=== PATIENT | male | born 1950 | race Caucasian/White ===

== ENCOUNTER 2018-02-03 17:07 | Emergency (ER) | payer MEDICARE, SELFPAY ==
[2018-02-03 17:10] VITALS: BP 172/87; PULSE 85; RESP 18; TEMP 37.3; O2SAT 98; BMI 29.2
[2018-02-03 17:30] VITALS: BP 176/89; PULSE 87; RESP 16; O2SAT 98
--- NOTE | 2018-02-03 17:43 | DI.RAD.S_ITS ---
PROCEDURE: XR CHEST 1V INDICATIONS: chest pain TECHNIQUE: One view of the chest was acquired. COMPARISON: None. FINDINGS: Surgical changes and devices: None. Lungs and pleura: No pleural effusions or pneumothorax. Lungs are clear. Mediastinum: Mediastinal contours appear normal. Heart size is normal. Bones and chest wall: No suspicious bony lesions. Overlying soft tissues appear unremarkable. IMPRESSION: 1. No acute cardiopulmonary disease. Dictated by: Oren Quinonez M.D. on 02/03/2018 at 18:06 Approved by: Oren Quinonez M.D. on 02/03/2018 at 18:06
[2018-02-03] MEDS: ASPIRIN 81 MG TAB 324 MG PO (17:49)
[2018-02-03] MEDS: SODIUM CHLORIDE 0.9% 1,000 ML 150 ML IV (17:49)
--- NOTE | 2018-02-03 17:49 | ED.CHESTPAIN ---
HPI - Chest Pain General Chief Complaint: Chest Pain Stated Complaint: CHEST PAIN Time Seen by Provider: 02/03/18 17:21 Source: patient Mode of arrival: ambulatory Limitations: no limitations History of Present Illness HPI narrative: 67-year-old male, nonsmoker with history of coronary artery disease presents to the emergency department with a chief complaint chest pain for the past week. He states the pain started after he was vigorously working in the garden and shoveling. He states the pain is in his left anterior chest and radiates into his left arm. The pain is worse with palpation and with motion of his left upper arm. He denies associated symptoms such as dizziness, weakness or lightheadedness. He denies shortness of breath, nausea or vomiting. He had a series of events leading to a heart cath back home in [place] 1 year ago. He states this feels much different. complaint: chest pain Onset (ago): day(s) Duration: constant Onset: during exertion Pain location: left chest Severity: moderate Quality: aching Pain radiation: LUE Relieving factors: nothing Exacerbating factors: movement Context: recent travel Treatments prior to arrival chest pain: none Related Data Home Medications Medication Instructions Recorded Confirmed Glucosamine Sulf-Chondroitin 1 tab PO BID 02/03/18 02/03/18 Vitamin B-12 1 tab PO DAILY 02/03/18 02/03/18 Vitamin D3 1 tab PO DAILY 02/03/18 02/03/18 aspirin 81 mg PO DAILY 02/03/18 02/03/18 atorvastatin [Lipitor] 10 mg PO DAILY 02/03/18 02/03/18 carvedilol [Coreg] 1 tab PO BID 02/03/18 02/03/18 clopidogrel [Plavix] 75 mg PO QPM 02/03/18 02/03/18 escitalopram oxalate [Lexapro] 20 mg PO QPM 02/03/18 02/03/18 melatonin 1 tab PO BEDTIME 02/03/18 02/03/18 zolpidem [Ambien] 10 mg PO BEDTIME 02/03/18 02/03/18 Allergies Allergy/AdvReac Type Severity Reaction Status Date / Time No Known Drug Allergies Allergy Verified 02/03/18 17:16 Review of Systems Review of Systems All systems reviewed & are unremarkable except as noted in HPI and below Constitutional Denies chills, Denies fever(s), Denies lethargy and Denies weakness Eyes Denies change in vision, Denies eye discharge, Denies irritation and Denies loss of vision ENT Ears, Nose, Mouth, and Throat: Denies change in voice, Denies neck pain and Denies sore throat Cardiovascular Reports chest pain, Denies irregular heart rhythm, Denies lightheadedness, Denies palpitations, Denies dyspnea, Denies dyspnea on exertion and Denies orthopnea Respiratory Denies cough, Denies dyspnea, Denies dyspnea on exertion and Denies wheezing Gastrointestinal Gastrointestinal: Denies abdominal pain, Denies change in bowel habits, Denies diarrhea, Denies nausea and Denies vomiting Genitourinary Denies hematuria, Denies flank pain, Denies urinary incontinence and Denies urinary urgency Musculoskeletal Denies neck pain Integumentary/Breasts Denies pruritus, Denies erythema, Denies rash and Denies wounds Neurologic Denies confusion, Denies loss of vision and Denies weakness Psychiatric Denies anxiety, Denies confusion, Denies depression, Denies homicidal ideation and Denies suicidal ideation Endocrine Denies palpitations Hematologic/Lymphatic Denies easy bruising Allergic/Immunologic Denies wheezing [facility] [place] Social History Smoking Status: Never smoker Exam Narrative Exam Narrative: GENERAL: This is a well-nourished, well-developed patient, in mild distress. HEAD: Atraumatic. Normocephalic. No temporal or scalp tenderness. EYES: Pupils equal round and reactive. Extraocular motions intact. No scleral icterus. No injection or drainage. ENT: Nose without bleeding, purulent drainage or septal hematoma. Throat without erythema, tonsillar hypertrophy or exudate. Uvula midline. Airway patent. NECK: Trachea midline. No JVD or lymphadenopathy. Supple, nontender, no meningeal signs. CARDIOVASCULAR: Regular rate and rhythm without murmurs, gallops, or rubs. Left anterior chest to palpation RESPIRATORY: Clear to auscultation. Breath sounds equal bilaterally. No wheezes, rales, or rhonchi. GASTROINTESTINAL: Abdomen soft, non-tender, nondistended. No hepato-splenomegaly, or palpable masses. No guarding. EXTREMITIES: No clubbing, cyanosis, or edema. No joint tenderness, effusion, or edema noted. BACK: Nontender without deformity or crepitance. No flank tenderness. NEURO: AOx3. SKIN: No rash or erythema. Initial Vital Signs Initial Vital Signs: Vital Signs Temperature 99.2 F 02/03/18 17:10 Pulse Rate 85 02/03/18 17:10 Respiratory Rate 18 02/03/18 17:10 Blood Pressure 172/87 H 02/03/18 17:10 Pulse Oximetry 98 02/03/18 17:10 Course Orders Ordered: ED Orders 02/03/18 17:20 Complete Blood Count AUTO DIFF Stat Comprehensive Metabolic Panel Stat D Dimer Stat Lipase Stat Troponin & CK Cardiac Panel Stat 02/03/18 17:43 XR chest 1V Stat EKG-12 Lead Stat Sodium Chloride (Normal Saline 0.9%) 1,000 mls @ 150 mls/hr IV CONT HEATHER Last Admin: 02/03/18 17:49 Dose: 150 mls/hr Nitroglycerin (Nitrostat) 0.4 mg SL [id number] PRN PRN Reason: Chest Pain Last Admin: 02/03/18 18:00 Dose: 0.4 mg Admin: 02/03/18 17:53 Dose: 0.4 mg Discontinued Medications Aspirin (Aspirin Chew) 324 mg PO NOW ONE Stop: 02/03/18 17:43 Last Admin: 02/03/18 17:49 Dose: 324 mg Ketorolac Tromethamine (Toradol) 15 mg IV NOW ONE Stop: 02/03/18 18:32 Last Admin: 02/03/18 18:35 Dose: 15 mg Metoprolol Tartrate (Lopressor) 5 mg IV NOW ONE Stop: 02/03/18 17:43 Last Admin: 02/03/18 18:28 Dose: Not Given Reevaluation(s) Reevaluation #1: no change after NG Reevaluation #2: complete resolution after Toradol Consultations Consultation #1: Dr. Castellanos (cardio) agrees that admission is most appropriate given patient hx of CAD/Stent and radiation of pain. She recommends strongly that patient have provocotive testing prior to DC and is happy to accept patient. Vital Signs - 8 hr 02/03/18 17:10 02/03/18 17:30 02/03/18 17:53 Temperature 99.2 F Pulse Rate 85 87 85 Respiratory Rate 18 16 Blood Pressure 172/87 H 194/103 H Blood Pressure [Left Arm] 176/89 H Pulse Oximetry 98 98 02/03/18 17:59 02/03/18 18:09 02/03/18 19:30 Temperature 98.4 F Pulse Rate 93 H 90 81 Respiratory Rate 16 Blood Pressure 158/77 H 147/77 H Blood Pressure [Left Arm] 156/80 H Pulse Oximetry 100 MDM - Chest Pain Differential Diagnosis Likely pneumothorax, stable angina, unstable angina pectoris, atypical chest pain, st elevation myocardial infarction, costochondritis, chest pain and biliary colic Medical Records Data Attestation: I reviewed the patient's medical records. Lab Data Attestation: I reviewed the patient's lab results. Result diagrams: 02/03/18 17:20 02/03/18 17:20 Lab Results 02/03/18 02/03/18 02/03/18 Range/Units 17:20 17:20 17:20 WBC 5.8 (4.5-11.0) X10^3/uL RBC 4.54 (4.5-5.9) X10^6/uL Hgb 14.2 (13.5-17.5) g/dL Hct 42.8 (41-53) % MCV 94.2 (80-100) fL MCH 31.2 (26-34) PG MCHC 33.1 (30-36) % RDW 13.3 (11.6-14.8) % Plt Count 221 (150-400) X10^3/uL Neut % (Auto) 71.6 (50-75) % Lymph % (Auto) 17.4 L (25-40) % [place] % (Auto) 7.6 (3-14) % Eos % (Auto) 2.5 (2-4) % Baso % (Auto) 0.9 (0-2) % Neut # (Auto) 4100 (4418-3681) /uL D-Dimer < 200 (<230) ng/mL Sodium 144 (137-145) mmol/L Potassium 3.9 (3.4-5.1) mmol/L Chloride 103 (98-107) mmol/L Carbon Dioxide 32 (22-32) mmol/L BUN 14 (9-20) mg/dL Creatinine 0.90 (0.66-1.25) mg/dL Estimated GFR > 60.0 (>60) mL/min BUN/Creatinine Ratio 15.6 (6-22) Glucose 113 H (80-110) mg/dL Calcium 8.9 (8.4-10.2) mg/dL Total Bilirubin 0.6 (0.2-1.3) mg/dL AST 28 (17-59) IU/L ALT 37 (21-72) IU/L Alkaline Phosphatase 90 (38-126) U/L Total Creatine Kinase 181 H (55-170) U/L CK-MB (CK-2) 3.27 H (<2.37) ng/mL CK-MB (CK-2) Rel Index 1.8 (1.5-5.0) % Troponin I < 0.012 (0.01-0.034) ng/mL Total Protein 7.3 (6.3-8.2) g/dL Albumin 4.6 (3.5-5.0) g/dL Globulin 2.7 (1.7-4.1) g/dL Albumin/Globulin Ratio 1.7 (1.0-2.8) Lipase 21 L (23-300) U/L Imaging Data Chest x-ray: Radiologist's impression: [place] [address] XRay Report Signed Patient: ANNETTA ROWE EMR#: [id number] : 2Acct:[id number] Age/Sex: 67 / MDate of Service: 02/03/18 Loc: ED Accession Number: [id number] Procedure: XR chest 1V Ordering Provider: Robby Nicholas D.O. PROCEDURE: XR CHEST 1V INDICATIONS: chest pain TECHNIQUE: One view of the chest was acquired. COMPARISON: None. FINDINGS: Surgical changes and devices: None. Lungs and pleura: No pleural effusions or pneumothorax. Lungs are clear. Mediastinum: Mediastinal contours appear normal. Heart size is normal. Bones and chest wall: No suspicious bony lesions. Overlying soft tissues appear unremarkable. IMPRESSION: 1. No acute cardiopulmonary disease. Dictated by: Oren Quinonez M.D. on 02/03/2018 at 18:06 ECG Data Attestation: I personally reviewed and interpreted this ECG as follows: Prior ECG tracings: not available for review Interpretation: NSR at 84, no ischemia changes such as ST elevations/depressions, T wave inversions, ectopy Repeat unchanged MDM Narrative Medical decision making narrative: Ischemia considering history of CAD and stenting. Pain is reproduceable with palpation, normal EKG x2, troponin normal after multiple days, however pain radiates and isn't clearly musculoskeletal. My very strong recommendation was for transfer to [facility] for complete workup. I spent extensive time at bedside with patient and sibling. He understands that his decision could result in permanent disability or even . He understands that he may return immediately for any change in his mind. He understands the signs and symptoms which would prompt a return and could recite them back. He has capacity to make this decision. PE considered. Leif Clements PE algorithim employed, Wells score (low risk), failed PERC, DDimer ordered. Discharge Plan Departure Patient Disposition: Home Clinical Impression: Chest pain Interventions: ED Discharge Assessment Last Done: 02/03/18 19:48 Instructions: DI for Chest Pain Activity Restrictions/Additional Instructions: *You have been diagnosed with [ chest pain ] *What to do: *Continue to take medications as directed *Follow up with your primary care provider upon return home, call for an appointment. Let them know you were seen in the Emergency Department and that we ask that you be seen in follow up *Return to ER if you should have any new, worsening or concerning symptoms, such as [increasing fatigue, chest pain, radiation of pain, sweating, shortness of breath, the sensation of almost passing out, other bothersome symptoms. ] Prescriptions: No Action atorvastatin [Lipitor] 10 mg Tablet 10 mg PO DAILY RF: 0 clopidogrel [Plavix] 75 mg Tablet 75 mg PO QPM RF: 0 aspirin 81 mg Tablet,Delayed Release (Dr/Ec) 81 mg PO DAILY RF: 0 carvedilol [Coreg] 3.125 mg Tablet 1 tab PO BID RF: 0 zolpidem [Ambien] 10 mg Tablet 10 mg PO BEDTIME RF: 0 escitalopram oxalate [Lexapro] 20 mg Tablet 20 mg PO QPM RF: 0 Glucosamine Sulf-Chondroitin 1 tab PO BID RF: 0 Vitamin B-12 1 tab PO DAILY RF: 0 Vitamin D3 1 tab PO DAILY RF: 0 melatonin 1 tab PO BEDTIME RF: 0
[2018-02-03 17:53] VITALS: BP 194/103; PULSE 85
[2018-02-03] MEDS: NITROGLYCERIN 0.4 MG SL TAB SL ×2 (17:53→18:00)
--- NOTE | 2018-02-03 17:53 | ED_ITS ---
HPI - Chest Pain General Chief Complaint: Chest Pain Stated Complaint: CHEST PAIN Time Seen by Provider: 02/03/18 17:21 Source: patient Mode of arrival: ambulatory Limitations: no limitations History of Present Illness HPI narrative: 67-year-old male, nonsmoker with history of coronary artery disease presents to the emergency department with a chief complaint chest pain for the past week. He states the pain started after he was vigorously working in the garden and shoveling. He states the pain is in his left anterior chest and radiates into his left arm. The pain is worse with palpation and with motion of his left upper arm. He denies associated symptoms such as dizziness, weakness or lightheadedness. He denies shortness of breath, nausea or vomiting. He had a series of events leading to a heart cath back home in [place] 1 year ago. He states this feels much different. complaint: chest pain Onset (ago): day(s) Duration: constant Onset: during exertion Pain location: left chest Severity: moderate Quality: aching Pain radiation: LUE Relieving factors: nothing Exacerbating factors: movement Context: recent travel Treatments prior to arrival chest pain: none Related Data Home Medications Medication Instructions Recorded Confirmed Glucosamine Sulf-Chondroitin 1 tab PO BID 02/03/18 02/03/18 Vitamin B-12 1 tab PO DAILY 02/03/18 02/03/18 Vitamin D3 1 tab PO DAILY 02/03/18 02/03/18 aspirin 81 mg PO DAILY 02/03/18 02/03/18 atorvastatin [Lipitor] 10 mg PO DAILY 02/03/18 02/03/18 carvedilol [Coreg] 1 tab PO BID 02/03/18 02/03/18 clopidogrel [Plavix] 75 mg PO QPM 02/03/18 02/03/18 escitalopram oxalate [Lexapro] 20 mg PO QPM 02/03/18 02/03/18 melatonin 1 tab PO BEDTIME 02/03/18 02/03/18 zolpidem [Ambien] 10 mg PO BEDTIME 02/03/18 02/03/18 Allergies Allergy/AdvReac Type Severity Reaction Status Date / Time No Known Drug Allergies Allergy Verified 02/03/18 17:16 Review of Systems Review of Systems All systems reviewed & are unremarkable except as noted in HPI and below Constitutional Denies chills, Denies fever(s), Denies lethargy and Denies weakness Eyes Denies change in vision, Denies eye discharge, Denies irritation and Denies loss of vision ENT Ears, Nose, Mouth, and Throat: Denies change in voice, Denies neck pain and Denies sore throat Cardiovascular Reports chest pain, Denies irregular heart rhythm, Denies lightheadedness, Denies palpitations, Denies dyspnea, Denies dyspnea on exertion and Denies orthopnea Respiratory Denies cough, Denies dyspnea, Denies dyspnea on exertion and Denies wheezing Gastrointestinal Gastrointestinal: Denies abdominal pain, Denies change in bowel habits, Denies diarrhea, Denies nausea and Denies vomiting Genitourinary Denies hematuria, Denies flank pain, Denies urinary incontinence and Denies urinary urgency Musculoskeletal Denies neck pain Integumentary/Breasts Denies pruritus, Denies erythema, Denies rash and Denies wounds Neurologic Denies confusion, Denies loss of vision and Denies weakness Psychiatric Denies anxiety, Denies confusion, Denies depression, Denies homicidal ideation and Denies suicidal ideation Endocrine Denies palpitations Hematologic/Lymphatic Denies easy bruising Allergic/Immunologic Denies wheezing [facility] Social History Smoking Status: Never smoker Exam Narrative Exam Narrative: GENERAL: This is a well-nourished, well-developed patient, in mild distress. HEAD: Atraumatic. Normocephalic. No temporal or scalp tenderness. EYES: Pupils equal round and reactive. Extraocular motions intact. No scleral icterus. No injection or drainage. ENT: Nose without bleeding, purulent drainage or septal hematoma. Throat without erythema, tonsillar hypertrophy or exudate. Uvula midline. Airway patent. NECK: Trachea midline. No JVD or lymphadenopathy. Supple, nontender, no meningeal signs. CARDIOVASCULAR: Regular rate and rhythm without murmurs, gallops, or rubs. Left anterior chest to palpation RESPIRATORY: Clear to auscultation. Breath sounds equal bilaterally. No wheezes , rales, or rhonchi. GASTROINTESTINAL: Abdomen soft, non-tender, nondistended. No hepato-splenomegaly , or palpable masses. No guarding. EXTREMITIES: No clubbing, cyanosis, or edema. No joint tenderness, effusion, or edema noted. BACK: Nontender without deformity or crepitance. No flank tenderness. NEURO: AOx3. SKIN: No rash or erythema. Initial Vital Signs Initial Vital Signs: Vital Signs Temperature 99.2 F 02/03/18 17:10 Pulse Rate 85 02/03/18 17:10 Respiratory Rate 18 02/03/18 17:10 Blood Pressure 172/87 H 02/03/18 17:10 Pulse Oximetry 98 02/03/18 17:10 Course Orders Ordered: ED Orders 02/03/18 17:20 Complete Blood Count AUTO DIFF Stat Comprehensive Metabolic Panel Stat D Dimer Stat Lipase Stat Troponin & CK Cardiac Panel Stat 02/03/18 17:43 XR chest 1V Stat EKG-12 Lead Stat Sodium Chloride (Normal Saline 0.9%) 1,000 mls @ 150 mls/hr IV CONT HEATHER Last Admin: 02/03/18 17:49 Dose: 150 mls/hr Nitroglycerin (Nitrostat) 0.4 mg SL [id number] PRN PRN Reason: Chest Pain Last Admin: 02/03/18 18:00 Dose: 0.4 mg Admin: 02/03/18 17:53 Dose: 0.4 mg Discontinued Medications Aspirin (Aspirin Chew) 324 mg PO NOW ONE Stop: 02/03/18 17:43 Last Admin: 02/03/18 17:49 Dose: 324 mg Ketorolac Tromethamine (Toradol) 15 mg IV NOW ONE Stop: 02/03/18 18:32 Last Admin: 02/03/18 18:35 Dose: 15 mg Metoprolol Tartrate (Lopressor) 5 mg IV NOW ONE Stop: 02/03/18 17:43 Last Admin: 02/03/18 18:28 Dose: Not Given Reevaluation(s) Reevaluation #1: no change after NG Reevaluation #2: complete resolution after Toradol Consultations Consultation #1: Dr. Castellanos (cardio) agrees that admission is most appropriate given patient hx of CAD/Stent and radiation of pain. She recommends strongly that patient have provocotive testing prior to DC and is happy to accept patient. Vital Signs - 8 hr 02/03/18 17:10 02/03/18 17:30 02/03/18 17:53 Temperature 99.2 F Pulse Rate 85 87 85 Respiratory Rate 18 16 Blood Pressure 172/87 H 194/103 H Blood Pressure [Left Arm] 176/89 H Pulse Oximetry 98 98 02/03/18 17:59 02/03/18 18:09 02/03/18 19:30 Temperature 98.4 F Pulse Rate 93 H 90 81 Respiratory Rate 16 Blood Pressure 158/77 H 147/77 H Blood Pressure [Left Arm] 156/80 H Pulse Oximetry 100 MDM - Chest Pain Differential Diagnosis Likely pneumothorax, stable angina, unstable angina pectoris, atypical chest pain, st elevation myocardial infarction, costochondritis, chest pain and biliary colic Medical Records Data Attestation: I reviewed the patient's medical records. Lab Data Attestation: I reviewed the patient's lab results. Result diagrams: 02/03/18 17:20 02/03/18 17:20 Lab Results 02/03/18 02/03/18 02/03/18 Range/Units 17:20 17:20 17:20 WBC 5.8 (4.5-11.0) X10^3/uL RBC 4.54 (4.5-5.9) X10^6/uL Hgb 14.2 (13.5-17.5) g/dL Hct 42.8 (41-53) % MCV 94.2 (80-100) fL MCH 31.2 (26-34) PG MCHC 33.1 (30-36) % RDW 13.3 (11.6-14.8) % Plt Count 221 (150-400) X10^3/uL Neut % (Auto) 71.6 (50-75) % Lymph % (Auto) 17.4 L (25-40) % [place] % (Auto) 7.6 (3-14) % Eos % (Auto) 2.5 (2-4) % Baso % (Auto) 0.9 (0-2) % Neut # (Auto) 4100 (9586-4504) /uL D-Dimer < 200 (<230) ng/mL Sodium 144 (137-145) mmol/L Potassium 3.9 (3.4-5.1) mmol/L Chloride 103 (98-107) mmol/L Carbon Dioxide 32 (22-32) mmol/L BUN 14 (9-20) mg/dL Creatinine 0.90 (0.66-1.25) mg/dL Estimated GFR > 60.0 (>60) mL/min BUN/Creatinine Ratio 15.6 (6-22) Glucose 113 H (80-110) mg/dL Calcium 8.9 (8.4-10.2) mg/dL Total Bilirubin 0.6 (0.2-1.3) mg/dL AST 28 (17-59) IU/L ALT 37 (21-72) IU/L Alkaline Phosphatase 90 (38-126) U/L Total Creatine Kinase 181 H (55-170) U/L CK-MB (CK-2) 3.27 H (<2.37) ng/mL CK-MB (CK-2) Rel Index 1.8 (1.5-5.0) % Troponin I < 0.012 (0.01-0.034) ng/mL Total Protein 7.3 (6.3-8.2) g/dL Albumin 4.6 (3.5-5.0) g/dL Globulin 2.7 (1.7-4.1) g/dL Albumin/Globulin Ratio 1.7 (1.0-2.8) Lipase 21 L (23-300) U/L Imaging Data Chest x-ray: Radiologist's impression: [place] [address] XRay Report Signed Patient: ANNETTA ROWE EMR#: [id number] : 2Acct:[id number] Age/Sex: 67 / MDate of Service: 02/03/18 Loc: ED Accession Number: [id number] Procedure: XR chest 1V Ordering Provider: Robby Nicholas D.O. PROCEDURE: XR CHEST 1V INDICATIONS: chest pain TECHNIQUE: One view of the chest was acquired. COMPARISON: None. FINDINGS: Surgical changes and devices: None. Lungs and pleura: No pleural effusions or pneumothorax. Lungs are clear. Mediastinum: Mediastinal contours appear normal. Heart size is normal. Bones and chest wall: No suspicious bony lesions. Overlying soft tissues appear unremarkable. IMPRESSION: 1. No acute cardiopulmonary disease. Dictated by: Oren Quinonez M.D. on 02/03/2018 at 18:06 ECG Data Attestation: I personally reviewed and interpreted this ECG as follows: Prior ECG tracings: not available for review Interpretation: NSR at 84, no ischemia changes such as ST elevations/depressions , T wave inversions, ectopy Repeat unchanged MDM Narrative Medical decision making narrative: Ischemia considering history of CAD and stenting. Pain is reproduceable with palpation, normal EKG x2, troponin normal after multiple days, however pain radiates and isn't clearly musculoskeletal. My very strong recommendation was for transfer to [facility] for complete workup. I spent extensive time at bedside with patient and sibling. He understands that his decision could result in permanent disability or even . He understands that he may return immediately for any change in his mind. He understands the signs and symptoms which would prompt a return and could recite them back. He has capacity to make this decision. PE considered. Leif Clements PE algorithim employed, Wells score (low risk), failed PERC, DDimer ordered. Discharge Plan Departure Patient Disposition: Home Clinical Impression: Chest pain Interventions: ED Discharge Assessment Last Done: 02/03/18 19:48 Instructions: DI for Chest Pain Activity Restrictions/Additional Instructions: *You have been diagnosed with [ chest pain ] *What to do: *Continue to take medications as directed *Follow up with your primary care provider upon return home, call for an appointment. Let them know you were seen in the Emergency Department and that we ask that you be seen in follow up *Return to ER if you should have any new, worsening or concerning symptoms , such as [increasing fatigue, chest pain, radiation of pain, sweating, shortness of breath, the sensation of almost passing out, other bothersome symptoms. ] Prescriptions: No Action atorvastatin [Lipitor] 10 mg Tablet 10 mg PO DAILY RF: 0 clopidogrel [Plavix] 75 mg Tablet 75 mg PO QPM RF: 0 aspirin 81 mg Tablet,Delayed Release (Dr/Ec) 81 mg PO DAILY RF: 0 carvedilol [Coreg] 3.125 mg Tablet 1 tab PO BID RF: 0 zolpidem [Ambien] 10 mg Tablet 10 mg PO BEDTIME RF: 0 escitalopram oxalate [Lexapro] 20 mg Tablet 20 mg PO QPM RF: 0 Glucosamine Sulf-Chondroitin 1 tab PO BID RF: 0 Vitamin B-12 1 tab PO DAILY RF: 0 Vitamin D3 1 tab PO DAILY RF: 0 melatonin 1 tab PO BEDTIME RF: 0
[2018-02-03 17:56] LABS: Add Manual Diff / Slide Review NO; Basophils Percent Auto 0.9 % (0-2); Eosinophils Percent Auto 2.5 % (2-4); Hematocrit 42.8 % (41-53); Hemoglobin 14.2 g/dL (13.5-17.5); Lymphocytes Percent Auto 17.4 % (25-40); Mean Corpuscular HGB Conc 33.1 % (30-36); Mean Corpuscular Hemoglobin 31.2 PG (26-34); Mean Corpuscular Volume 94.2 fL (80-100); Monocytes Percent Auto 7.6 % (3-14); Neutrophils Absolute Auto 4100 /uL (3000-5900); Neutrophils Percent Auto 71.6 % (50-75); Platelet Count 221 X10^3/uL (150-400); Red Blood Cell Count 4.54 X10^6/uL (4.5-5.9); Red Cell Distribution Width 13.3 % (11.6-14.8); White Blood Cell Count 5.8 X10^3/uL (4.5-11.0)
[2018-02-03 17:59] VITALS: BP 158/77; PULSE 93
[2018-02-03 18:02] LABS: Alanine Aminotransferase 37 IU/L (21-72); Albumin 4.6 g/dL (3.5-5.0); Albumin Globulin Ratio 1.7 (1.0-2.8); Alkaline Phosphatase 90 U/L (38-126); Aspartate Aminotransferase 28 IU/L (17-59); BUN Creatinine Ratio 15.6 (6-22); Bilirubin Total 0.6 mg/dL (0.2-1.3); Blood Urea Nitrogen 14 mg/dL (9-20); Calcium 8.9 mg/dL (8.4-10.2); Carbon Dioxide 32 mmol/L (22-32); Chloride 103 mmol/L (98-107); Creatine Kinase 181 U/L (55-170); Estimated Glomerular Filt Rate > 60.0 mL/min (>60); Globulin 2.7 g/dL (1.7-4.1); Glucose 113 mg/dL (80-110); HEMOLYSIS 41 (0-50); Lipase 21 U/L (23-300); Potassium 3.9 mmol/L (3.4-5.1); Sodium 144 mmol/L (137-145); Total Protein 7.3 g/dL (6.3-8.2)
[2018-02-03 18:09] VITALS: BP 147/77; PULSE 90
[2018-02-03 18:09] LABS: D Dimer < 200 ng/mL (<230)
[2018-02-03 18:15] LABS: Troponin I < 0.012 ng/mL (0.01-0.034)
[2018-02-03 18:18] LABS: CKMB % Relative Index 1.8 % (1.5-5.0); Creatine Kinase MB 3.27 ng/mL (<2.37)
[2018-02-03] MEDS: KETOROLAC 60 MG/2 ML VIAL 15 MG IV (18:35)
[2018-02-03 19:30] VITALS: BP 156/80; PULSE 81; RESP 16; TEMP 36.9; O2SAT 100
--- NOTE | 2018-02-18 21:24 | PC.NURSE ---
Late entry for 02/03/2018 IV NS stopped at 1930 total intake, 300ml, discarded 700 ml's on discharge.
== END 2018-02-03 20:04 | disposition home or self-care (01) ==
PROVIDERS: Emergency Provider Emergency Medicine
DX: R07.89 Other chest pain (principal)
CPT/HCPCS: 36415; 36591; 71045; 80053; 82550; 82553; 83690; 84484; 85025; 85379; 93005; 93010; 96361; 96374; 99283; 99285; J1885